=== PATIENT | male | born 1975 | race Caucasian/White ===

== ENCOUNTER 2020-04-21 17:54 | Emergency (ER) | payer SELFPAY ==
[2020-04-21 18:12] VITALS: BP 125/97; PULSE 102; RESP 20; TEMP 37.3; O2SAT 97
[2020-04-21 18:20] VITALS: BP 134/86; PULSE 79
[2020-04-21 18:22] VITALS: BP 137/90; PULSE 86
[2020-04-21 18:24] VITALS: BP 143/101; PULSE 90
--- NOTE | 2020-04-21 18:43 | ED.GENADULT ---
HPI - General Adult General Chief complaint: Neuro Symptoms/Deficit Stated complaint: fatigue/dizzy/fever Time Seen by Provider: 04/21/20 18:43 Source: patient and RN notes reviewed Mode of arrival: ambulatory Limitations: no limitations History of Present Illness HPI narrative: 45-year-old male presents with complaints of fatigue and intermittent dizziness that has been going on for the past 3 days. Symptoms increased this am causing him to call off. No treatment. Exacerbating factors consist of changing position too fast turning head from side to side too fast. Relieving factors is sitting still. Denies symptoms at this time. Denies ear pain, ear itching, ear trauma, trauma to head, syncopal episodes, altered vision, altered speech, confusion, or seizure activity. Denies headache, numbness or tingling in extremities. Denies chest pain or dyspnea. Denies URI symptoms, fever, or chills. Tolerating p.o. intake well. Remains active. The patient reports he have not been diagnosed with COVID-19. The patient reports he is not waiting for the results of a COVID-19 lab test. The patient reports he do not have fever, chills, or weakness. The patient reports he do not have a new or worsening cough or shortness of breath. Denies chest pain. The patient reports he do not have any rhinorrhea, congestion, sore throat, nausea, vomiting, abdominal pain, and diarrhea. Tolerating po intake well. Denies recent traveling. Denies concerns for COVID-19 or exposures been home with limited outdoor exposure except for essential household needs, work, and return home. At this time, patient is not suspected of having COVID-19. Some parts of this dictation were generated by voice recognition software and may contain typographical and/or grammatical inaccuracies. Related Data Home Medications Medication Instructions Recorded Confirmed mirtazapine 1 mg PO DAILY 04/21/20 04/21/20 Allergies Allergy/AdvReac Type Severity Reaction Status Date / Time sulfamethoxazole Allergy Intermediate hives Verified 04/21/20 18:36 trimethoprim Allergy Intermediate hives Verified 04/21/20 18:36 Review of Systems Review of Systems: Narrative: CONSTITUTIONAL: Denies fever, chills, sweats. Complains of fatigue. EYES: Denies visual changes, redness, discharge. ENT: Denies rhinorrhea, congestion, sore throat, otalgia. CARDIOVASCULAR: Denies chest pain, palpitations, edema. RESPIRATORY: Denies dyspnea, wheezing, cough. GASTROINTESTINAL: Denies abdominal pain, nausea, vomiting, diarrhea. GENITOURINARY: Denies dysuria, hematuria, abnormal discharge. SKIN: Denies lesions, itching, drainage. MUSCULOSKELETAL: Denies acute back pain, joint pain, or myalgia. NEUROLOGIC: Denies numbness or focal weakness. Complains of intermittent dizziness. PSYCHIATRIC: Denies anxiety or depression. All systems reviewed & are unremarkable except as noted in HPI and below. FOR[facility]LY [facility], LAT[facility] Past Medical History Medical History Collapse of left lung Hypertension Smoker Surgical History Surgical History (Updated 04/21/20 @ 18:53 by WADE Encinas) History of chest tube placement History of removal of cyst History of tonsillectomy Left tonsil only Family History Family History (Updated 04/21/20 @ 18:54 by WADE Encinas) Father Alive and well Mother Skin cancer (melanoma) Social History Social History (Updated 04/21/20 @ 18:55 by WADE Encinas) Smoking status: Current every day smoker Tobacco type: cigars Second hand tobacco smoke exposure: No Additional smoking assessment comments: Smokes 6 to 8 cigars daily Alcohol intake: former Alcohol use details: Stop drinking 2 years ago Substance use: never Living arrangements: with family Occupation/Education: occupation Gender identity (if verbalized by the patient): Male Sexual Orientation (if Verbalized by the Patient): Straight or Heterosexual Comments At time of signature,
--- NOTE | 2020-04-21 18:51 | ECG_ITS ---
Measurements Intervals [place] Rate: 84 P: 64 [place]: 156 QRS: 34 QRSD: 91 T: 36 QT: 353 QTc: 419 Interpretive Statements SINUS RHYTHM NORMAL ECG Electronically Signed On 04-22-2020 11:34:53 CDT by Ralph Stephenson D.O.
== END 2020-04-21 19:10 | disposition home or self-care (01) ==
PROVIDERS: Emergency Provider Nurse Practitioner Family; PCP Internal Medicine
DX: R42 Dizziness and giddiness (principal); F17.290 Nicotine dependence, other tobacco product, uncomplicated; I10 Essential (primary) hypertension
CPT/HCPCS: 93005; 99213; G0463

== ENCOUNTER 2023-04-14 10:14 | Emergency (ER) | payer OTHER, SELFPAY ==
[2023-04-14 10:26] VITALS: BP 142/74; PULSE 75; RESP 14; TEMP 36.6; O2SAT 99
--- NOTE | 2023-04-14 10:52 | ED.DENTAL ---
HPI - Dental/Oral General Chief complaint: Dental/Oral Stated complaint: Mouth Sore Time Seen by Provider: 04/14/23 10:52 Source: patient, RN notes reviewed and old records reviewed Mode of arrival: ambulatory Limitations: no limitations History of Present Illness HPI Narrative: 47 year old male who presents to [facility] care with complaints of mouth ulcers on and off for the past couple of months which he has had in the past. Patient states that he has had them in past related to stress usually clear up with use of magic mouthwash and steroids. Patient reports that he does not drink alcohol or smoke, has been tested for immune disorder in past because of these which was negative and had tonsil tissue removed which was normal. Patient reports not being able to eat because of discomfort of these mouth sores.Patient has ulcer type of lesions to inside of mouth on sides of tongue and some on sides of mouth reports burning type of pain. Onset (ago): month(s) (on and off for past 2 months) Severity scale (1-10): 8 Exacerbating factors: other (eating) Treatment prior to arrival: other (states he took a percocet) Related Data Home Medications Medication Instructions Recorded Confirmed atorvastatin 20 mg tablet mg 04/14/23 buprenorphine 2 mg-naloxone 0.5 mg film 04/14/23 sublingual film (Suboxone) carvedilol 3.125 mg tablet mg 04/14/23 losartan 100 mg tablet mg 04/14/23 Allergies Allergy/AdvReac Type Severity Reaction Status Date / Time sulfamethoxazole Allergy Intermediate hives Verified 04/14/23 10:32 trimethoprim Allergy Intermediate hives Verified 04/14/23 10:32 Review of Systems Review of Systems: CONSTITUTIONAL: Denies fever, chills, or sweats. ENT: Denies rhinorrhea, congestion, sore throat, or otalgia. Reports ulcers to the inside of his anterior mouth along sides of tongue and on sides of mouth for 2 month duration intermittently CARDIOVASCULAR: Denies chest pain, palpitations, or edema. RESPIRATORY: Denies cough or dyspnea. SKIN: Denies rash or itching. MUSCULOSKELETAL: Denies myalgia. NEUROLOGIC: Denies headache All systems reviewed & are unremarkable except as noted in HPI and below PMFSH Past Medical History Medical History Collapse of left lung Ejection fraction < 50% Elevated serum cholesterol Hypertension Smoker Surgical History Surgical History History of chest tube placement History of removal of cyst History of tonsillectomy Left tonsil only Family History Family History Father Alive and well Mother Skin cancer (melanoma) Social History Social History Smoking status: Former smoker Second hand tobacco smoke exposure: No Alcohol intake: former Alcohol use details: Stop drinking 2 years ago Substance use: former Substance use type: opiates Other substance usage details: on suboxone Living arrangements: with family Occupation/Education: occupation Gender identity (if verbalized by the patient): Male Sexual Orientation (if Verbalized by the Patient): Straight or Heterosexual Comments At time of signature, agree with nursing past medical, surgical, social and family history. There is no relevant family history pertinent to the presenting complaint Exam Narrative: GENERAL: Well-appearing, well-nourished, and in no acute distress. HEAD: Normocephalic, atraumatic. EYES: PERRLA and EOMI. ENT: Nares clear, no rhinorrhea or epistaxis. Mucous membranes moist. Aphthous type of ulcer lesions on inside of mouth and on sides of tongue which he reports make eating difficult,intermittently past 2 months NECK: Supple.no lymphadenopathy CHEST: Clear to auscultation. No respiratory distress..SAO2 99% on room air HEART: Regular rate and rhythm. No murmur heard. Normal peripheral pulses.no peripheral edema noted
== END 2023-04-14 11:18 | disposition home or self-care (01) ==
PROVIDERS: Emergency Provider Registered Nurse; PCP Physician Assistant
DX: K12.0 Recurrent oral aphthae (principal); Z87.891 Personal history of nicotine dependence; I10 Essential (primary) hypertension
CPT/HCPCS: 99213; G0463

== ENCOUNTER 2024-04-21 16:27 | Emergency (ER) | payer OTHER, SELFPAY ==
[2024-04-21 16:38] VITALS: BP 140/93; PULSE 81; RESP 20; TEMP 36.5; O2SAT 99
--- NOTE | 2024-04-21 17:02 | ED.GENADULT ---
HPI - General Adult General Chief complaint: Dental/Oral Stated complaint: Mouth Sore Time Seen by Provider: 04/21/24 17:02 Source: patient, RN notes reviewed and old records reviewed Mode of arrival: ambulatory Limitations: no limitations History of Present Illness HPI narrative: 49-year-old male to Express Care complaint multiple aphthous ulcers to oral mucosa for 3 days. Patient reports chronic history of aphthous ulcers and states that he is usually treated with steroids and Magic mouthwash. Patient reports prior testing for autoimmune diseases as well as biopsies prior lesions which were all negative. Patient states margins make it difficult to eat and drink and states he has maintained relatively soft diet for the past 2 days. Patient denies difficulty swallowing, cough, hoarseness, shortness of breath, fever, recent illness. Patient able to tolerate fluids by mouth. Patient tachycardic in triage. In exam room, respirations even and nonlabored. Patient able to speak in complete sentences with mild distress from pain. Patient able to tolerate fluids by mouth. Patient in no acute distress. Related Data Home Medications Medication Instructions Recorded Confirmed atorvastatin 20 mg tablet mg 04/14/23 buprenorphine 2 mg-naloxone 0.5 mg film 04/14/23 sublingual film (Suboxone) losartan 100 mg tablet mg 04/14/23 tadalafil 5 mg tablet mg 04/21/24 Allergies Allergy/AdvReac Type Severity Reaction Status Date / Time sulfamethoxazole Allergy Intermediate hives Verified 04/14/23 10:32 trimethoprim Allergy Intermediate hives Verified 04/14/23 10:32 Review of Systems Review of Systems: All systems reviewed & are unremarkable except as noted in HPI and below Constitutional: Constitutional: Reports no additional constitutional complaints Eyes: Eyes: Reports no additional eye complaints ENT: Reports as per HPI, Reports mouth lesions and Reports mouth pain Cardiovascular: Cardiovascular: Reports no additional cardiovascular complaints, Denies chest pain and Denies dyspnea Respiratory: Respiratory: Reports no additional respiratory complaints, Denies cough and Denies dyspnea Musculoskeletal: Musculoskeletal: Reports no additional musculoskeletal complaints Neurologic: Reports system reviewed and no additional complaints, except as documented Psychiatric: Psychiatric: Reports no additional psychiatric complaints FOR[facility]LY [facility], [facility] Past Medical History Medical History Collapse of left lung Ejection fraction < 50% Elevated serum cholesterol Hypertension Smoker Surgical History Surgical History History of chest tube placement History of removal of cyst History of tonsillectomy Left tonsil only Family History Family History Father Alive and well Mother Skin cancer (melanoma) Social History Social History Smoking status: Former smoker Second hand tobacco smoke exposure: No Alcohol intake: former Alcohol use details: Stop drinking 2 years ago Substance use: former Substance use type: opiates Other substance usage details: on suboxone Living arrangements: with family Occupation/Education: occupation Gender identity (if verbalized by the patient): Male Sexual Orientation (if Verbalized by the Patient): Straight or Heterosexual Comments At the time of my signature, I reviewed and agree with the nursing past medical, surgical, social, and family history. There is no relevant family history pertinent to the patient complaint. Exam Const: General: cooperative, healthy appearing, no acute distress, alert, in distress mild ( From pain), uncomfortable and well nourished Nutritional Appearance: well nourished Orientation/consciousness: patient oriented x3 Limitations: no limitations HENMT: Head: normal to in
== END 2024-04-21 17:25 | disposition home or self-care (01) ==
PROVIDERS: Emergency Provider Nurse Practitioner Family; PCP Physician Assistant
DX: K12.0 Recurrent oral aphthae (principal); Z87.891 Personal history of nicotine dependence; E78.00 Pure hypercholesterolemia, unspecified; I10 Essential (primary) hypertension
CPT/HCPCS: 99213; G0463

== ENCOUNTER 2024-05-19 15:31 | Emergency (ER) | payer OTHER, SELFPAY ==
[2024-05-19 15:38] VITALS: BP 147/92; PULSE 68; RESP 20; TEMP 36.7; O2SAT 99
--- NOTE | 2024-05-19 16:27 | ED.DENTAL ---
HPI - Dental/Oral General Chief complaint: Dental/Oral Stated complaint: Mouth Sore Source: patient Mode of arrival: ambulatory History of Present Illness HPI Narrative: 49-year-old male with a history of recurrent aphthous ulcers presented for complaint of more sores in the mouth over past few days. He was last treated on 04/21 for the same. He endorses he has had these for 20 years, they improve for a few weeks after taking a course of steroids and using magic mouthwash. He states he has seen multiple specialists for these, and was told he has an autoimmune disease. Patient denies difficulty swallowing, cough, hoarseness, shortness of breath, fever, recent illness. Patient able to tolerate fluids by mouth. MD Complaint: tooth pain Related Data Home Medications Medication Instructions Recorded Confirmed niacin 100 mg tablet 100 mg PO DAILY 05/19/24 05/19/24 saw palmetto 160 mg capsule 160 mg PO DAILY 05/19/24 05/19/24 vitamin B complex 1 tablet PO DAILY 05/19/24 05/19/24 Allergies Allergy/AdvReac Type Severity Reaction Status Date / Time sulfamethoxazole Allergy Intermediate hives Verified 05/19/24 15:57 trimethoprim Allergy Intermediate hives Verified 05/19/24 15:57 Review of Systems Review of Systems: CONSTITUTIONAL: Denies body aches, fever, chills ENT: Denies rhinorrhea, congestion, sore throat, or otalgia. Reports mouth pain CARDIOVASCULAR: Denies chest pain, palpitations RESPIRATORY: Denies cough or dyspnea. SKIN: Denies rash, itching, or wounds. MUSCULOSKELETAL: Denies myalgia. NEUROLOGIC: Denies headache, numbness, tingling, or weakness. PMFSH Past Medical History Medical History Collapse of left lung Ejection fraction < 50% Elevated serum cholesterol Hypertension Smoker Surgical History Surgical History History of chest tube placement History of removal of cyst History of tonsillectomy Left tonsil only Family History Family History Father Alive and well Mother Skin cancer (melanoma) Social History Social History Smoking status: Former smoker Second hand tobacco smoke exposure: No Alcohol intake: former Alcohol use details: Stop drinking 2 years ago Substance use: former Substance use type: opiates Other substance usage details: on suboxone Living arrangements: with family Occupation/Education: occupation Gender identity (if verbalized by the patient): Male Sexual Orientation (if Verbalized by the Patient): Straight or Heterosexual Comments At time of signature, I have reviewed and agree with nursing past medical, surgical, social and family history unless otherwise noted. Please see nursing chart for further information. There is no relevant family history pertinent to the presenting complaint Exam Narrative: GENERAL: Appears in pain; no acute distress. HEAD: Normocephalic, atraumatic. EYES: EOMI. No redness or drainage. Conjunctivae normal. ENT: Right upper lip and right lateral tongue with white mucosal ulcerations, tender. Mucous membranes pink and moist. TMs normal bilaterally. Throat normal. Uvula midline. NECK: Normal AROM. No lymphadenopathy. CHEST: No respiratory distress. Clear to auscultation. HEART: Regular rate and rhythm. No murmur appreciated. SKIN: Warm, dry, no rash. Normal skin turgor. NEURO: No focal deficits. Alert and oriented x3. Gait steady. Course Course Emergency Course: Patient is aware of diagnosis, understands and agrees to treatment plan. Anticipatory guidance given. Patient agrees to follow-up as directed and is aware of reasons to seek care at the emergency department. Portions of this record may have been created with voice recognition software Level of Care: Express Care Visit Vital Signs Vital signs: Vital Signs Temperature
== END 2024-05-19 16:45 | disposition home or self-care (01) ==
PROVIDERS: Emergency Provider Nurse Practitioner Family; PCP Physician Assistant
DX: K12.0 Recurrent oral aphthae (principal); Z87.891 Personal history of nicotine dependence; I10 Essential (primary) hypertension
CPT/HCPCS: 99213; G0463

== ENCOUNTER 2024-07-06 10:19 | Emergency (ER) | payer OTHER, SELFPAY ==
[2024-07-06 10:24] VITALS: BP 132/85; PULSE 83; RESP 17; TEMP 36.4; O2SAT 99
--- NOTE | 2024-07-06 10:41 | ED.GENADULT ---
HPI - General Adult General Chief complaint: Unspecified Stated complaint: mouth ulcers Time Seen by Provider: 07/06/24 10:41 Source: patient, RN notes reviewed and old records reviewed Mode of arrival: ambulatory Limitations: no limitations History of Present Illness HPI narrative: 49-year-old male to Express Care complaint multiple aphthous ulcers to oral mucosa. Patient reports chronic history of aphthous ulcers and states that he is usually treated with steroids and Magic mouthwash. Patient states he has magic mouthwash at home and has had little to no relief with utilization. Patient reports prior testing for autoimmune diseases as well as biopsies prior lesions which were all negative. Patient states margins make it difficult to eat and drink and states he has maintained relatively soft diet For the past several days. Patient denies difficulty swallowing, cough, hoarseness, shortness of breath, fever, recent illness. Patient able to tolerate fluids by mouth. In exam room, respirations even and nonlabored. Patient able to speak in complete sentences with mild distress from pain. Patient able to tolerate fluids by mouth. Patient in no acute distress. Related Data Home Medications Medication Instructions Recorded Confirmed niacin 100 mg tablet 100 mg PO DAILY 05/19/24 07/06/24 saw palmetto 160 mg capsule 160 mg PO DAILY 05/19/24 07/06/24 vitamin B complex 1 tablet PO DAILY 05/19/24 07/06/24 tadalafil 5 mg tablet 5 mg PO DAILY 07/06/24 07/06/24 Allergies Allergy/AdvReac Type Severity Reaction Status Date / Time sulfamethoxazole Allergy Intermediate hives Verified 07/06/24 10:36 trimethoprim Allergy Intermediate hives Verified 07/06/24 10:36 Review of Systems Review of Systems: All systems reviewed & are unremarkable except as noted in HPI and below Constitutional: Constitutional: Reports no additional constitutional complaints Eyes: Eyes: Reports no additional eye complaints ENT: Reports as per HPI, Reports mouth pain and Reports other ( Oral lesions) Cardiovascular: Cardiovascular: Reports no additional cardiovascular complaints, Denies chest pain and Denies dyspnea Respiratory: Respiratory: Reports no additional respiratory complaints, Denies cough and Denies dyspnea Musculoskeletal: Musculoskeletal: Reports no additional musculoskeletal complaints Neurologic: Reports system reviewed and no additional complaints, except as documented Psychiatric: Psychiatric: Reports no additional psychiatric complaints PMFSH Past Medical History Medical History Collapse of left lung Ejection fraction < 50% Elevated serum cholesterol Hypertension Smoker Surgical History Surgical History History of chest tube placement History of removal of cyst History of tonsillectomy Left tonsil only Family History Family History Father Alive and well Mother Skin cancer (melanoma) Social History Social History Smoking status: Former smoker Second hand tobacco smoke exposure: No Alcohol intake: former Alcohol use details: Stop drinking 2 years ago Substance use: former Substance use type: opiates Other substance usage details: on suboxone Living arrangements: with family Occupation/Education: occupation Gender identity (if verbalized by the patient): Male Sexual Orientation (if Verbalized by the Patient): Straight or Heterosexual Comments At the time of my signature, I reviewed and agree with the nursing past medical, surgical, social, and family history. There is no relevant family history pertinent to the patient complaint. Exam Const: General: cooperative, healthy appearing, no acute distress, alert, uncomfortable and well nourished Nutritional Appearance: well nourished Orientation/consciousness: patient oriented x3 Limitations: no limitations HENMT: Head: normal to inspection Ears: external ears normal Face/Nose/Sinus: Normal external nose present, Normal nares present, normal facial exam, No erythema and No edema Face and sinus: normal facial exam, no erythema and no edema Mouth: Yes moist mucous membranes abnormal and Yes Abnormal oral and palatal mucosa present erythematous and ulceration of the left buccal mucosa Eyes: General: appearance normal, both eyes and all related structures Neck: Neck: normal visual inspection, full ROM and no meningeal signs Chest: Chest palpation & inspection: normal inspection of the chest Resp: Effort & Inspection: normal respiratory effort and able to speak in complete sentences Auscultation: clear to auscultation bilaterally Cardio: Jugular venous distension: no JVD Rate: regular rate Rhythm: regular rhythm Back/Spine/Pelvis: Cervical Spine: cervical ROM normal Skin: General skin exam: normal color, no rashes or lesions noted and turgor normal Neuro: General: patient oriented x3, gait normal, moves all extremities and no meningeal signs Speech: normal speech Gait exam (Neuro): Normal gait present Extrem: General: normal to inspection, full ROM and capillary refill normal Psych: Appearance: grossly normal and well kempt Course Course Emergency Course: Some parts of this dictation were generated by voice recognition software and may contain typographical and/or grammatical inaccuracies. Level of Care: Express Care Visit Vital Signs Vital signs: Vital Signs Temperature 36.4 C L 07/06/24 10:24 Pulse Rate 83 07/06/24 10:24 Respiratory Rate 17 07/06/24 10:24 Blood Pressure 132/85 07/06/24 10:24 Pulse Oximetry 99 07/06/24 10:24 Oxygen Delivery Room Air 07/06/24 10:24 Temperature 36.4 C L 07/06/24 10:24 Pulse Rate 83 07/06/24 10:24 Respiratory Rate 17 07/06/24 10:24 Blood Pressure 132/85 07/06/24 10:24 Pulse Oximetry 99 07/06/24 10:24 Oxygen Delivery Room Air 07/06/24 10:24 reviewed Medical Decision Making MDM Narrative Medical decision making narrative: 49-year-old male to Express Care complaint multiple aphthous ulcers to oral mucosa. Patient reports chronic history of aphthous ulcers and states that he is usually treated with steroids and Magic mouthwash. Patient states he has magic mouthwash at home and has had little to no relief with utilization. Patient reports prior testing for autoimmune diseases as well as biopsies prior lesions which were all negative. Patient states margins make it difficult to eat and drink and states he has maintained relatively soft diet For the past several days. Patient denies difficulty swallowing, cough, hoarseness, shortness of breath, fever, recent illness. Patient able to tolerate fluids by mouth. In exam room, respirations even and nonlabored. Patient able to speak in complete sentences with mild distress from pain. Patient able to tolerate fluids by mouth. Patient in no acute distress. Patient is sitting uncomfortably in exam room nontoxic in appearance. on exam, ulcerations noted to left pupil mucosa with surrounding erythema. Consistent with aphthous ulcers. Patient appropriate for outpatient treatment and follow-up. Discharge instructions reviewed with patient, as well as provided in writing per nursing staff. The instructions also include specific and strict return/GO TO THE ER as well as f/u information. All questions have been answered, and the patient deny any further questions with discharge and discharge plan. Some parts of this dictation were generated by voice recognition software and may contain typographical and/or grammatical inaccuracies. Differential Diagnosis Differential Diagnosis: aphthous ulcer, herpes simplex, [id number] Vital Signs Vital Signs: Vital Signs Temperature 36.4 C L 07/06/24 10:24 Pulse Rate 83 07/06/24 10:24 Respiratory Rate 17 07/06/24 10:24 Blood Pressure 132/85 07/06/24 10:24 Pulse Oximetry 99 07/06/24 10:24 Oxygen Delivery Room Air 07/06/24 10:24 Temperature 36.4 C L 07/06/24 10:24 Pulse Rate 83 07/06/24 10:24 Respiratory Rate 17 07/06/24 10:24 Blood Pressure 132/85 07/06/24 10:24 Pulse Oximetry 99 07/06/24 10:24 Oxygen Delivery Room Air 07/06/24 10:24 Discharge Plan Discharge Clinical Impression: Aphthous ulcer of mouth Patient Disposition: Home, Self-Care Condition: Stable Prescriptions: New prednisone 50 mg tablet 50 mg PO DAILY Qty: 5 0RF No Action vitamin B complex [B Complex-Vitamin B12] Tablet 1 tablet PO DAILY niacin 100 mg Tablet 100 mg PO DAILY jhoana palmetto 160 mg Capsule 160 mg PO DAILY tadalafil 5 mg tablet 5 mg PO DAILY Follow-up/Referrals: Janelle,PEDRO PABLO Lindquist [Primary Care Provider] -
== END 2024-07-06 11:00 | disposition home or self-care (01) ==
PROVIDERS: Emergency Provider Nurse Practitioner Family; PCP Physician Assistant
DX: K12.0 Recurrent oral aphthae (principal); Z87.891 Personal history of nicotine dependence; I10 Essential (primary) hypertension
CPT/HCPCS: 99213; G0463

== ENCOUNTER 2024-08-10 12:59 | Emergency (ER) | payer OTHER, SELFPAY ==
[2024-08-10 13:09] VITALS: BP 151/91; PULSE 78; RESP 16; TEMP 36.3; O2SAT 100
--- NOTE | 2024-08-10 13:28 | ED.GENADULT ---
HPI - General Adult General Chief complaint: Dental/Oral Stated complaint: mouth ulcers Source: patient Mode of arrival: ambulatory Limitations: no limitations History of Present Illness HPI narrative: Pt presents for evaluation of a painful ulcer to the inner aspect of the left cheek. He has had persistent symptoms for several decades after he started taking Chantix for smoking cessation. He has had lesions in several places in his mouth with persistent symptoms to the inner aspect of the left cheek, which never seems to heal. He states he has seen Hematology/Oncology, ENT, and an oral surgeon. He has had biopsies and several tests including an HIV test. He has also tried several therapies including antibiotics, triamcinolone dental paste, nystatin suspension. He no longer smokes. He is not aware of any type of immunodeficiency. He states his primary care provider has told that he has a markedly elevated white blood cell count. States that the only therapy that has provided him with any relief is prednisone. Related Data Home Medications Medication Instructions Recorded Confirmed niacin 100 mg tablet 100 mg PO DAILY 05/19/24 07/06/24 saw palmetto 160 mg capsule 160 mg PO DAILY 05/19/24 07/06/24 vitamin B complex 1 tablet PO DAILY 05/19/24 07/06/24 tadalafil 5 mg tablet 5 mg PO DAILY 07/06/24 07/06/24 Allergies Allergy/AdvReac Type Severity Reaction Status Date / Time sulfamethoxazole Allergy Intermediate hives Verified 07/06/24 10:36 trimethoprim Allergy Intermediate hives Verified 07/06/24 10:36 Review of Systems Review of Systems: CONSTITUTIONAL: Denies fever, chills, or sweats. EYES: Denies visual changes, redness, or discharge. ENT: Reports painful ulcer to the inner aspect of the left cheek. Denies rhinorrhea, congestion, sore throat, or otalgia. CARDIOVASCULAR: Denies chest pain, palpitations, or edema. RESPIRATORY: Denies cough or dyspnea. GASTROINTESTINAL: Denies abdominal pain, nausea, vomiting, or diarrhea. GENITOURINARY: Denies dysuria or hematuria. SKIN: Denies rash or itching. MUSCULOSKELETAL: Denies back pain, joint pain, or myalgia. NEUROLOGIC: Denies headache, numbness, dizziness, or weakness. PSYCHIATRIC: Denies anxiety or depression. [facility] Past Medical History Medical History Collapse of left lung Ejection fraction < 50% Elevated serum cholesterol Hypertension Smoker Surgical History Surgical History History of chest tube placement History of removal of cyst History of tonsillectomy Left tonsil only Family History Family History Father Alive and well Mother Skin cancer (melanoma) Social History Social History Smoking status: Former smoker Second hand tobacco smoke exposure: No Alcohol intake: former Alcohol use details: Stop drinking 2 years ago Substance use: former Substance use type: opiates Other substance usage details: on suboxone Living arrangements: with family Occupation/Education: occupation Gender identity (if verbalized by the patient): Male Sexual Orientation (if Verbalized by the Patient): Straight or Heterosexual Exam Narrative: GENERAL: Well-appearing, well-nourished, and in no acute distress. HEAD: Normocephalic, atraumatic. EYES: PERRLA and EOMI. ENT: Nares clear, no rhinorrhea or epistaxis. Mucous membranes moist. Oropharynx without tonsillar hypertrophy exudate or other lesions. Bilateral TMs pearly fay nonbulging NECK: Supple. No adenopathy or masses. No carotid bruits or JVD CHEST: Clear to auscultation. No respiratory distress. No wheezes rales or rhonchi HEART: Regular rate and rhythm. No murmur heard. Normal peripheral pulses. ABDOMEN: Soft, nontender, nondistended, normal active bowel sounds. EXTREMITIES: Normal range of motion. No edema. SKIN: There is a 1 cm ulcerative lesion to the inner aspect of the left cheek. Warm, dry, no rash. NEURO: No focal deficits. Alert and oriented x3. PSYCH: Normal mood and affect. Course Course Emergency Course: This is a 49-year-old male that presents today requesting treatment for chronic left inner cheek ulcer which has previously responded well to prednisone. I obtained at herpes viral swab. I recommended he also look into labs to test him for syphilis an autoimmune disease. He indicates that there is still concern that he may have some type of autoimmune disease. He will follow-up with his primary provider. In the event that he has difficulty breathing or swelling he will go to the emergency department. Patient in agreement with plan of care. Level of Care: Express Care Visit Vital Signs Vital signs: Vital Signs Temperature 36.3 C L 08/10/24 13:09 Respiratory Rate 16 08/10/24 13:09 Blood Pressure 151/91 H 08/10/24 13:09 Pulse Oximetry 100 08/10/24 13:09 Oxygen Delivery Room Air 08/10/24 13:09 Temperature 36.4 C L 08/10/24 13:18 Pulse Rate 96 08/10/24 13:18 Respiratory Rate 20 08/10/24 13:18 Blood Pressure 124/84 08/10/24 13:18 Pulse Oximetry 99 08/10/24 13:18 Oxygen Delivery Room Air 08/10/24 13:18 Medical Decision Making Vital Signs Vital Signs: Vital Signs Temperature 36.3 C L 08/10/24 13:09 Respiratory Rate 16 08/10/24 13:09 Blood Pressure 151/91 H 08/10/24 13:09 Pulse Oximetry 100 08/10/24 13:09 Oxygen Delivery Room Air 08/10/24 13:09 Temperature 36.4 C L 08/10/24 13:18 Pulse Rate 96 08/10/24 13:18 Respiratory Rate 20 08/10/24 13:18 Blood Pressure 124/84 08/10/24 13:18 Pulse Oximetry 99 08/10/24 13:18 Oxygen Delivery Room Air 08/10/24 13:18 Discharge Plan Discharge Clinical Impression: Mouth ulcer Patient Disposition: Home, Self-Care Condition: Stable Instructions: Antibiotic Form, Gingivostomatitis (ED) Patient Language: Gabonese Prescriptions: New prednisone 50 mg tablet 50 mg PO DAILY Qty: 5 0RF No Action vitamin B complex [B Complex-Vitamin B12] Tablet 1 tablet PO DAILY niacin 100 mg Tablet 100 mg PO DAILY saw palmetto 160 mg Capsule 160 mg PO DAILY tadalafil 5 mg tablet 5 mg PO DAILY Follow-up/Referrals: Janelle,PEDRO PABLO Lindquist [Primary Care Provider] - Time of Disposition: 13:26
== END 2024-08-10 13:32 | disposition home or self-care (01) ==
PROVIDERS: Emergency Provider Nurse Practitioner; PCP Physician Assistant
DX: K12.1 Other forms of stomatitis (principal); I10 Essential (primary) hypertension; Z87.891 Personal history of nicotine dependence
CPT/HCPCS: 87255; 99213; G0463

== ENCOUNTER 2024-08-20 16:03 | Emergency (ER) | payer OTHER, SELFPAY ==
[2024-08-20 16:17] VITALS: BP 135/95; PULSE 89; RESP 18; TEMP 36.7; O2SAT 98
--- NOTE | 2024-08-20 16:31 | ED.URI ---
HPI - URI/Sore Throat General Chief Complaint: Upper Respiratory Infection Stated Complaint: Sore Throat Time Seen by Provider: 08/20/24 16:31 Source: patient, RN notes reviewed and old records reviewed Mode of arrival: ambulatory Limitations: no limitations History of Present Illness HPI Narrative: 49 year old male who [facility] with complaints of one week duration of head congestion and drainage, headaches, fevers up to 101F, throat hurts and exacerbation of his chronic mouth sores. Patient reprts that he has been taking Benadryl ad also took Tylenol for his fever. Patient reports that he has had biopsies of mouth sores and they have never really figured it out think possibly immune disorder. Patient reports that prednisone is the only thing that clears them up, has tried magic mouthwash and lidocaine and never helped. MD elicited complaint: sore throat, rhinorrhea, nasal congestion, sinus pain and other (headache and mouth sores) Onset (ago): week(s) (1) Pain scale (0-10): 4 Able to tolerate fluids by mouth: Yes Treatments prior to arrival: acetaminophen and other (Benadryl) Related Data Home Medications Medication Instructions Recorded Confirmed niacin 100 mg tablet 100 mg PO DAILY 05/19/24 08/20/24 saw palmetto 160 mg capsule 160 mg PO DAILY 05/19/24 08/20/24 vitamin B complex 1 tablet PO DAILY 05/19/24 08/20/24 tadalafil 5 mg tablet 5 mg PO DAILY 07/06/24 08/20/24 Allergies Allergy/AdvReac Type Severity Reaction Status Date / Time sulfamethoxazole Allergy Intermediate hives Verified 08/20/24 16:27 trimethoprim Allergy Intermediate hives Verified 08/20/24 16:27 Review of Systems Review of Systems: CONSTITUTIONAL: reports malaise, chills, sweats, or fever. EYES: Denies visual changes, redness, or discharge. ENT: Reports rhinorrhea, congestion, sinus pain, no otalgia and positive sore throat. CARDIOVASCULAR: Denies chest pain, palpitations, or edema. RESPIRATORY: Reports no acute cough.? Denies dyspnea. GASTROINTESTINAL: Denies abdominal pain, nausea, vomiting, diarrhea SKIN: Denies rash or itching. MUSCULOSKELETAL: Denies myalgia. NEUROLOGIC: reports headache. All systems reviewed & are unremarkable except as noted in HPI and below PMFSH Past Medical History Medical History (Updated 08/22/24 @ 18:39 by Umu Torres NP) Collapse of left lung Ejection fraction < 50% Elevated serum cholesterol Hypertension Surgical History Surgical History History of chest tube placement History of removal of cyst History of tonsillectomy Left tonsil only Family History Family History Father Alive and well Mother Skin cancer (melanoma) Social History Social History (Updated 08/22/24 @ 18:34 by Umu Torres NP) Smoking status: Former smoker Tobacco type: cigarettes Second hand tobacco smoke exposure: No Additional smoking assessment comments: quit 3 years ago Alcohol intake: former Alcohol use details: Stop drinking 2 years ago Substance use: former Substance use type: opiates Other substance usage details: on suboxone reports not on this any longer 08/17 Living arrangements: with family Occupation/Education: occupation Gender identity (if verbalized by the patient): Male Sexual Orientation (if Verbalized by the Patient): Straight or Heterosexual Comments At time of signature, agree with nursing past medical, surgical, social and family history. There is no relevant family history pertinent to the presenting complaint Exam Narrative: GENERAL: Well-appearing, well-nourished, and in no acute distress. HEAD: Normocephalic EYES: PERRLA, conjunctivae clear ENT: Nares clear, turbinates edematous and erythematous, clear discharge. Mucous membranes moist. TM pearly fay with dull light reflex bilaterally; no tragal tenderness. Oropharynx erythematous without lesions. Tonsil not enlarged and without exudate, no drooling, no hoarseness, no trismus, uvula midline.some red raised mouth lesion, post nasal drainage NECK: Supple. No lymphadenopathy CHEST: Clear to auscultation, breath sounds equal. No wheezing, rhonchi, rales, or stridor. No respiratory distress, speaks in full sentences.no cough noted,SAO2 98% on room air HEART: Regular rate and rhythm. No murmur heard. SKIN: Warm, dry, no rash. NEURO: Alert and oriented x3. PSYCH: Normal mood and affect Course Course Emergency Course: Patient is aware of diagnosis, understands and agrees to treatment plan.? Anticipatory guidance given.? Patient agrees to follow-up as directed and is aware of reasons to seek care at the emergency department. Portions of this record may have been created with voice recognition software Level of Care: Express Care Visit Vital Signs Vital signs: Vital Signs Temperature 36.7 C 08/20/24 16:17 Pulse Rate 89 08/20/24 16:17 Respiratory Rate 18 08/20/24 16:17 Blood Pressure 135/95 H 08/20/24 16:17 Pulse Oximetry 98 08/20/24 16:17 Oxygen Delivery Room Air 08/20/24 16:17 Temperature 36.7 C 08/20/24 16:17 Pulse Rate 89 08/20/24 16:17 Respiratory Rate 18 08/20/24 16:17 Blood Pressure 135/95 H 08/20/24 16:17 Pulse Oximetry 98 08/20/24 16:17 Oxygen Delivery Room Air 08/20/24 16:17 Reviewed MDM - URI/Sore Throat MDM Narrative Medical decision making narrative: Differential diagnosis considered: Pedersen virus, strep pharyngitis, allergic rhinitis, upper respiratory tract infection, sinusitis, rhinosinusitis, nasopharyngitis. viral pharyngitis, otitis media, otitis externa, pneumonia, bronchitis, viral cough syndrome, viral syndrome, and influenza.? Exam findings show no acute concerns or changes; patient is non-toxic appearing and is in no distress.? Patient is appropriate for outpatient treatment and follow-up. Differential Diagnosis Differential diagnosis: Likely upper respiratory infection, sinusitis, pharyngitis and other (aphthous ulcers) Medical Records Attestation: I reviewed the patient's medical records. Lab Data Attestation: I reviewed the patient's lab results. Lab results narrative: strep screen negative, culture sent, refused any other testing Labs: Lab Results 08/20/24 Range/Units 16:25 POC Grp A Strep Screen Negative (Negative) Critical Care Time Critical Care Time Critical Care Time: No Discharge Plan Discharge Clinical Impression: Upper respiratory infection, Aphthous pharyngitis Patient Disposition: Home, Self-Care Condition: Stable Instructions: Antibiotic Form, Gingivostomatitis (ED) Additional Instructions: Increase fluids especially juices and water [id number] cough and cold medicine of your choice for your symptoms Zyrtec Claritin or My daily Magic mouthwash p.r.n. as previously prescribed Steroids as directed--take with food heat to the face 20-30 minutes 4-6 times a day for pain Salt water gargles, throat lozenges or throat sprays as desired Antibiotic as directed- If your symptoms persist, change or worsen significantly before you can contact your personal physician then please, without delay, go to the emergency department for further evaluation. Follow-up with PCP in 7-10 days or sooner if needed Follow up with PCP soon in regards to your blood pressure which is elevated above threshold for referral. Blood pressure above 120/80 may indicate pre-hypertension.135/95 Prescriptions: New amoxicillin 875 mg tablet 875 mg PO Q12H Qty: 20 0RF prednisone 50 mg tablet 50 mg PO DAILY 5 Days Qty: 5 0RF No Action vitamin B complex [B Complex-Vitamin B12] Tablet 1 tablet PO DAILY niacin 100 mg Tablet 100 mg PO DAILY saw palmetto 160 mg Capsule 160 mg PO DAILY tadalafil 5 mg tablet 5 mg PO DAILY Follow-up/Referrals: Janelle,PEDRO PABLO Lindquist [Primary Care Provider] - Time of Disposition: 17:07 Quality [place] Coma Scale Eyes: Open Verbal: Oriented and Alert Motor: Follows Commands Lav[place] Coma Total Score: 15
[2024-08-20 17:18] LABS: EDSTREPNEGPOS1 Negative (Negative)
== END 2024-08-20 17:10 | disposition home or self-care (01) ==
PROVIDERS: Emergency Provider Registered Nurse; PCP Physician Assistant
DX: J06.9 Acute upper respiratory infection, unspecified (principal); B08.5 Enteroviral vesicular pharyngitis; I10 Essential (primary) hypertension; Z87.891 Personal history of nicotine dependence
CPT/HCPCS: 87081; 87880; 99213; G0463

== ENCOUNTER 2025-02-27 17:23 | Emergency (ER) | payer OTHER, SELFPAY ==
--- OUTSIDE RECORDS SUMMARY | 2025-02-27 17:26 | XMS_ITS | Patient Health Record ---
[facility] Organization [facility] Address [address] [place] [address] Care Team Providers Care Instruments Sales Representative Name Role Phone Giovani Mary Primary Care Provider Allergies Allergen (clinical drug ingredient) Drug/Non Drug Allergy documented on EMR Reaction Allergy Type Onset Date Status gabapentin Gabapentin Encephalopathy Drug Allergy 10/06/2020 Active amlodipine Amlodipine Unknown Drug Allergy Activ e Reason For Referral No Information Medications Medication SIG (Take, Route, Frequency, Duration) Notes Start Date End Date Status Losartan Potassium 50 mg TAKE 1 TABLET B Y MOUTH DAILY for 30 Active Triamcinolone Acetonide 0.1 % APPLY TO AFFECTED AREA(S) A THIN LAYER TO SEBORRHEA AT BEDTIME NEEDED for 5 Active Zubsolv 5.7-1.4 MG 1 tablet under the tongue and allow to dissolve Sublingual twice a day 12/22/2021 Active OLANZapine 5 mg TAKE 1 TABLET BY [facility] AT BEDTIME for 30 Active Tadalafil 5 MG 1 tablet as needed 1 -2 HOURS PRIOR TO SEXUAL ACTIVITY Orally EVERY OTHER DAY 10/20/2021 Active Nicotine 21 MG/24HR APPLY 1 PATCH TO SKI N DAILY for 28 Active Social History Tobacco Use: Social History Observation Description Date Details (start date - stop date) Current Smoker NA - NA Sex Assigned At : Social History Observation Description Sex Assigned At Male Dont use, Tobacco Use/Smoking Question Answer Notes Are you a current every day smoker Problems Problem Type SNOMED Code ICD Code Onset Dates Problem Status W/U Status Risk Notes Problem Tobacco user (157492348) Nicotine dependence, unspecified, uncomplicated (F17.200) Active confirmed Problem 439283395 Bipolar disorder , in partial remission, most recent episode depressed (F31.75) 1 Active confirmed Problem Chronic pain (78291068) Other chronic pain (G89.29) Active confirmed Problem Low back pain (817672271) Low back pain (M54.5) Active confirmed Problem 99794102 Chronic fatigue (R53.82) Active confirmed Problem 17896840 Sleep apnea, unspecified type (G47.30) Active confirmed Problem 23854769 Left sided sciatica (M54.32) Active confirmed Problem Opioid dependence (28939108) Opioid use disorder, severe (F11.20) Active confirmed Problem 44135570 Sexual dysfunction (R37) 1 Active confirmed Problem 228635823 Tobacco use disorder (F17.200) Active confirmed Problem 63656976 Hypertension, unspecified type (I10) Active confirmed Problem Obesity (588917527) Obesity, unspecified classification, unspecified obesity type, unspecified whether serious comorbidity present (E66.9) Active confirmed Problem 2384960 Opioid use disorder (F11.99) Active confirmed Problem 63217592 Cannabis use disorder, moderate, dependence (F12.20) Active confirmed Problem 50564380 Seborrhea (L21.9) Active confirmed Plan Of Treatment Pending Test Test Name Order Date Testosterone,Free and Total 01/20/2021 Vitamin B12 and Folate 01/20/2021 CBC With Differential/Platelet* 01/21/20 21 C-Reactive Protein, Quant 01/20/2021 Hepatic Function Panel (7)* 01/20/2021 Basic Metabolic Panel (8)* 01/20/2021 TSH Rfx on Abnormal to Free T4 1 PSA, Serum (Serial Monitor)* 01/20/2021 Future Test Test Name Order Date MLH1/MSH2/MSH6/PMS2 Comprehensive Analys is 02/01/2021 Fentanyl Confirmation 04/29/2021 Insurance Providers Payer Name Payer Address Payer Phone Subscriber Number Group Number Insured Name Patient Relationship to Insured Coverage Start Date Coverage End Date [facility] Claims Department [address] [place] [address] [id number] Richard Andrea Self - patient is the insured 1 MEDICAID [address] [place] [address] [id number] Richard Andrea Self - patient is the insured 1 1 [facility] [place] 2[facility] [address] [place] [address] [id number] 4 Richard Andrea Self - patient is the insured [address] [address] [id number] Richard Andrea Self - patient is the insured 1 Medications Administered Medication Instructions Date of Administration Dosage Notes Vivitrol 01/20/2021 380 mg Pt tolerated w ell. Pt voiced no questions or concerns. Sample Given. Vivitrol 02/18/2021 380 mg Toby Maker Abdulkadir cano. Pt tolerated well. Voiced no questions or concerns at present time. Vivitrol 03/17/2021 380 mg Patient tolera greg injection well. Patient voiced no complaints and had no questions or concerns today. Medical (General) History Surgical History Surgery Date(Month/Year) left lung collapsed 2009 Hospitalization History Reason Date(Month/Year)
--- OUTSIDE RECORDS SUMMARY | 2025-02-27 17:26 | XMS_ITS | Clinical Summary ---
Author Organization [facility] Address [address] [place] [address] Phone Care Team Providers Care Hand Twister Name Role Phone Giovani Mary MD Primary Care Provider Allergies Active Allergy Reactions Criticality Noted Date Comments Gabapentin Other (see Comments) 05/27/2021 seizures Sulfamethoxazole-Trimethoprim Hives Medium 2016 Medications Multiple Vitamins-Minera ls (MULTIVITAMIN PO) Take by mouth. Activ e methylPREDNISol one (MEDROL DOSPACK) 4 MG Tablet Therapy Pack See product package insert for dosing schedule 21 Tab 9 Active Additional Information Patient not taking.Reported on 05/16/2020 amLODIPine Besy-Benazepril HCl 10-20 MG Capsule Take 1 Capsule by mouth daily. Active tiZANidine HCl 4 MG Capsule Take 4 mg by mouth 4 times daily. Active acetaminophen-c odeine (TYLENOL/CODEIN E #3) 300-30 MG Tablet Take 2 Tablets by mouth 2 times daily as needed. Active Active Problems No known active problems Family History Medical History Relation Name Comments Hypertension Father Prostate Cancer Father Skin Cancer Mother Relation Name Status Comments Father Alive Mother Alive Social History Tobacco Use Types Packs/Day Years Used Date Smoking Tobacco: Never Cigarettes 2 12 Smokeless Tobacco: Never Tobacco Cessation:Ready to Q uit: No; Counseling Given: No Alcohol Use Standard Drinks/Week Comments No 0 (1 standard drink = 0.6 oz pur e alcohol) Sex and Gender Information Value Date Recorded Sex Assigned at Not on file Legal Sex Male 7:44 PM CDT Gender Identity Not on file Sexual Orientation Not on file 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 Not on file Not on file Not on file Last Filed Vital Signs Vital Sign Reading Time Taken Comments Blood Pressure 166/111 05/27/2021 10:30 PM CDT Pulse 100 05/27/2021 10:30 PM CDT Temperature 36.6 C (97.8 F) 05/27/2021 9:07 PM CDT Respiratory Rate 25 05/27/2021 10:30 PM CDT Oxygen Saturation 96% 05/27/2021 10:30 PM CDT Inhaled Oxygen Concentration - - Weight 86.2 kg (190 lb) 05/27/2021 9:07 PM CDT Height 182.9 cm (6') 05/27/2021 9:07 PM CDT Body Mass Index 25.77 05/27/2021 9:07 PM CDT Plan of Treatment Health Maintenance Due Date Last Done Comments Hepatitis C Virus (HCV) Screening 1977 TdaP Immunization 1977 Hepatitis B Immunization (1 of 3 - 19+ 3-dose series) 1996 Colonoscopy 2022 Colorectal Cancer Screening 2022 SARS-COV-2 Immunization ( - season) 2024 Influenza Immunization (Seas on Ended) 2025 07/23/2015 Respiratory Syncytial Virus (RSV) Immunization (Adult) (1 - 1-dose 75+ series) 2052 Pneumococcal Immunization Combined Aged Out 2014 No longer eligible based on patient's age to complete this topic Human Papillomavirus (HPV) Immunization Aged Out No longer eligible b ased on patient's age to complete this topic Meningococcal Immunization (ACWY) Aged Out No longer eligible based on patient's age to complete this topic Rotavirus Immunization Aged Out No lo nger eligible based on patient's age to complete this topic Insurance [place] [id number] Care Teams Hand Twister Relationship Specialty Start Date End Date Giovani Mary MD [address] [facility] [address] [place] [address] PCP - General Internal Medicine 03/11/21
--- OUTSIDE RECORDS SUMMARY | 2025-02-27 17:28 | XMS_ITS | Continuity of Care Document ---
Author Organization [facility] Address [address] [facility] [address] [place] [address] Insurance Providers Payer Plan Claims Address Claims Phone Policy Number Group Number Relation Employer Guarantor Name Guarantor Guarantor Address Guarantor Phone MEDIC AID [place] [address], [place] [id number] tel:[phone] [id number] Self Richard Andrea [address], [place] [address] [facility] [address] [address], [place] [address] tel:[phone] Self Richard Andrea [address], [place] [address] [employer] [place] [address], [place] [address] tel:[phone] Self Richard Andrea 1975 [address], [place] [address] Problems Unknown Problems Results Test Value / Unit Interpretation Reference Ran ge Lab Report Richard Andrea.pdf Allergies, adverse reactions, alerts No known allergies and adverse reactions Medications No administered medications reported Vital Signs No vital signs reported Social History No smoking Hx information available
[2025-02-27 17:29] VITALS: BP 170/117; PULSE 83; RESP 16; TEMP 36.6; O2SAT 100
[2025-02-27 17:33] VITALS: BP 169/111
--- NOTE | 2025-02-27 18:02 | ED.SKABFB ---
HPI - Skin/Abscess/Foreign Bdy General Chief complaint: Skin/Abscess/Foreign Body Stated complaint: mouth lesions Time Seen by Provider: 02/27/25 17:45 Source: patient Mode of arrival: ambulatory Limitations: no limitations History of Present Illness HPI narrative: Richard is a 49-year-old male patient presenting to the clinic today with complaints of mouth sores. He has sores to his oral mucosa as well as to his tongue. States that these sores, and go. Has been dealing with this for several years and seen multiple doctors. States he has had biopsies of the area is and they have come back to be noncancerous. States that they have given the diagnosis of lichen planus. Has tried the Magic mouthwash in the past and is very expensive in does not help well. States he normally gets a steroid and that resolved his symptoms Related Data Home Medications ?Medication ?Instructions ?Recorded ?Confirmed ?Last Taken ?Type saw palmetto 160 mg capsule 160 mg PO DAILY 05/19/24 08/20/24 Unknown History vitamin B complex 1 tablet PO DAILY 05/19/24 08/20/24 Unknown History Allergies Allergy/AdvReac Type Severity Reaction Status Date / Time sulfamethoxazole Allergy Intermediate hives Verified 02/27/25 17:33 trimethoprim Allergy Intermediate hives Verified 02/27/25 17:33 Review of Systems Review of Systems: Pertinent positives per HPI. Patient denies any fever, chills, rash, headache, visual changes, dizziness, cough, runny nose, sore throat, shortness of breath, chest pain, palpitations, nausea, vomiting, diarrhea, constipation, abdominal pain, or any urinary issues. PMFSH Past Medical History Medical History Ejection fraction < 50% Elevated serum cholesterol Collapse of left lung Hypertension Surgical History Surgical History History of removal of cyst History of tonsillectomy Left tonsil only History of chest tube placement Family History Family History Father Alive and well Mother Skin cancer (melanoma) Social History Social History Smoking status: Former smoker Tobacco type: cigarettes Second hand tobacco smoke exposure: No Additional smoking assessment comments: quit 3 years ago Alcohol intake: former Alcohol use details: Stop drinking 2 years ago Substance use: former Substance use type: opiates Other substance usage details: on suboxone reports not on this any longer 08/17 Living arrangements: with family Occupation/Education: occupation Gender identity (if verbalized by the patient): Male Sexual Orientation (if Verbalized by the Patient): Straight or Heterosexual Comments At the time of my signature, I reviewed and agree with the nursing past medical, surgical, social, and family history. There is no relevant family history pertinent to the patient complaint. Exam Narrative: General: Well-developed, well nourished, in no apparent distress Head: Normocephalic, atraumatic Eyes: Pupils equally round and reactive to light bilaterally, EOM intact, sclera and conjunctive clear, no discharge, lids normal Ears: TMs intact and clear, ear canals clear, no drainage, grossly hearing normal. Nose: Nares patent, no discharge, no inflammation, no sinus tenderness. Mouth: Oropharynx with open ulcerated sores to the tip of the tongue and oral mucosa, good dentition, MMM. Neck: Supple, trachea midline, no enlargement of anterior or posterior cervical nodes, no thyroid masses or goiter palpable. Cardio: Regular rate and rhythm, s1 and s2 normal, no murmur appreciated. Resp: Clear to auscultation bilaterally anteriorly and posteriorly, no rhonchi, rales, wheezing or rubs Course Course Emergency Course: Portions of this record may have been created with voice recognition software. Level of Care: Express Care Visit Vital Signs Vital signs: Vital Signs Temperature 36.6 C 02/27/25 17:29 Pulse Rate 83 02/27/25 17:29 Respiratory Rate 16 02/27/25 17:29 Blood Pressure 170/117 H 02/27/25 17:29 Pulse Oximetry 100 02/27/25 17:29 Oxygen Delivery Room Air 02/27/25 17:29 Temperature 36.6 C 02/27/25 17:29 Pulse Rate 83 02/27/25 17:29 Respiratory Rate 16 02/27/25 17:29 Blood Pressure 169/111 H 02/27/25 17:33 Pulse Oximetry 100 02/27/25 17:29 Oxygen Delivery Room Air 02/27/25 17:29 Vital signs reviewed MDM - Skin/Abscess/Foreign Bdy MDM Narrative Medical decision making narrative: At the time of visit patient is resting comfortably on the exam table. Patient appears to be nontoxic. Plan: Patient has outbreak of lichen planus. Prescription for prednisone was sent to the pharmacy. Supportive measures were discussed with the patient and they voiced understanding discharge instructions and agrees to treatment plan. Return precautions reviewed Differential Diagnosis Differential diagnosis: Likely abscess of skin or subcutaneous tissue and other (Gingivostomatitis, canker sore, fever blister) Discharge Plan Discharge Clinical Impression: Lichen planus Patient Disposition: Home Condition: Stable Instructions: Antibiotic Form, Gingivostomatitis (ED) Additional Instructions: Take prednisone as prescribed Avoid salty, spicy, or acidic foods Eat a bland diet during this outbreak Follow-up with your primary care doctor in 3-5 days Patient Language: Lao Prescriptions: New prednisone 50 mg tablet 50 mg PO DAILY 5 Days Qty: 5 0RF No Action vitamin B complex [B Complex-Vitamin B12] Tablet 1 tablet PO DAILY saw palmetto 160 mg Capsule 160 mg PO DAILY Follow-up/Referrals: Lyric,Moe Govea MD [Primary Care Provider] - Time of Disposition: 17:48 Quality NIHSS Nursing Documentation ED NIHSS nursing documentation: reviewed/agree
== END 2025-02-27 17:53 | disposition home or self-care (01) ==
PROVIDERS: Emergency Provider Nurse Practitioner Family; PCP Family Medicine
DX: L43.9 Lichen planus, unspecified (principal); Z87.891 Personal history of nicotine dependence; I10 Essential (primary) hypertension
CPT/HCPCS: 99213; G0463

== ENCOUNTER 2025-04-06 16:00 | Emergency (ER) | payer OTHER, SELFPAY ==
--- OUTSIDE RECORDS SUMMARY | 2025-04-06 16:03 | XMS_ITS | Encounter Summary ---
Author Organization [facility] Address [address] [place] [address] Phone Care Team Providers Care Malt House Operator Name Role Phone Moe Ji MD Primary Care Provider [phone] Reason for Referral * PT/OT/ST (Routine) - Open Specialty Diagnoses / Procedures Referred By Contbinu t Referred To Contact Physical Therapy Diagnoses Cervicalgia Zahraa De La Cruz APRN, ART PREPARATOR [address] [place] [address] Phone: tel: fax: [facility] at [address] [address] Phone: tel: fax: Referral ID Status Reason Start Date Expiration Date Visits Re quested Visits Authorized [id number] Open 03/31/2025 100 100 Scheduling Instructions Encounter Details Date Type Department Care Team (Latest Contact Info) Description 03/31/2025 Transcribe Orders [facility] [address] [place] [address] Zahraa De La Cruz APRN, ART PREPARATOR [address] [place] [address] Cervicalgia (Primary Dx) Social History Tobacco Use Types Packs/Day Years Used Date Smoking Tobacco: Never Cigarettes 2 12 Smokeless Tobacco: Never Alcohol Use Standard Drinks/Week Comments No 0 (1 standard drink = 0.6 oz pur e alcohol) Sex and Gender Information Value Date Recorded Sex Assigned at Not on file Legal Sex Male 7:44 PM CDT Gender Identity Not on file Sexual Orientation Not on file 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 Not on file Not on file documented as of this encounter Plan of Treatment Upcoming Encounters Date Type Department Care Team (Latest Contact Info) Description 04/29/2025 4:45 PM CDT Physical Therapy [facility] [address] [facility], [address] [place] [id number] Zahraa De La Cruz, PRESSURE DISPATCHER, ART PREPARATOR [address] [place] [address] Fidelia Wallace, PT [place] Discharge Disposition: Discharged to home or Selfcare Scheduled Referrals Name Type Priority Associated Diagnoses Orde r Schedule PHYSICAL THERAPY REFERRAL Outpatient Referral Routine Cervicalgia Expected: 03/31/2025, Expires: 03/31/2026 documented as of this encounter Visit Diagnoses Diagnosis Cervicalgia- Primary documented in this encounter Additional Health Concerns Assessment Noted Time PHQ-9 Depression Total Score: 0 09/12/20 17 2:00 PM FAMILY MEMBER CARETAKER documented as of this encounter Care Teams Malt House Operator Relationship Specialty Start Date End Date Moe Ji MD [address] [place] [address] [facility] [address] [place] [address] PCP - General Family Medicine 03/10/25 documented as of this encounter
--- OUTSIDE RECORDS SUMMARY | 2025-04-06 16:03 | XMS_ITS | Patient Health Record ---
Author Organization [facility] Address [address] [place] [address] Care Team Providers Care Hospice Music Therapist Name Role Phone Giovani Mary Primary Care [...] mg TAKE 1 TABLET B Y MOUTH DAILY; Duration: 30 Active Triamcinolone Acetonide 0.1 % APPLY TO AFFECTED AREA(S) A THIN LAYER TO SEBORRHEA AT BEDTIME NEEDED; Duration: 5 Active Zubsolv 5.7-1.4 MG 1 tablet under the tongue and allow to dissolve Sublingual twice a day 12/22/2021 Active OLANZapine 5 mg TAKE 1 TABLET BY [facility] AT BEDTIME; Duration: 30 Active Tadalafil 5 MG 1 tablet as needed 1 -2 HOURS PRIOR TO SEXUAL ACTIVITY Orally EVERY OTHER DAY 10/20/2021 Active Nicotine 21 MG/24HR APPLY 1 PATCH TO SKI N DAILY; Duration: 28 Active Social History Tobacco Use: Social [...] W/U Status Risk Notes Problem Tobacco user (858000466) Nicotine dependence, unspecified, uncomplicated (F17.200) Active confirmed Problem Depressed bipolar I disorder in remission (62279263) Bipolar disorder, in partial remission, most recent episode depressed (F31.75) 1 Active confirmed Problem Chronic pain (90690225) Other chronic pain (G89.29) Active confirmed Problem Low back pain (525759061) Low back pain (M54.5) Active confirmed Problem Chronic fatigue syndrome (75792228) Chronic fatigue (R53.82) Active confirmed Problem Sleep apnea (81784810) Sleep apnea, unspecified type (G47.30) Active confirmed Problem Sciatica (52928742) Left sided sciatica (M54.32) Active confirmed Problem Opioid dependence (93549462) Opioid use disorder, severe (F11.20) Active confirmed Problem Sexual dysfunction (23415547) Sexual dysfunction (R37) 1 Active confirmed Problem Tobacco use (308517112) Tobacco use disorder (F17.200) Active confirmed Problem Essential hypertension (42554858) Hypertension, unspecified type (I10) Active confirmed Problem Obesity (822663062) Obesity, unspecified classification, unspecified obesity type, unspecified whether serious comorbidity present (E66.9) Active confirmed Problem Opioid use disorder (1024564379) Opioid use disorder (F11.99) Active confirmed Problem Cannabis dependence (24781419) Cannabis use disorder, moderate, dependence (F12.20) Active confirmed Problem Seborrhea (8982070229) Seborrhea (L21.9) Active confirmed Plan Of Treatment [...] Insured Coverage Start Date Coverage End Date [facility] Attn Claims Department [address] [place] [address] [phone] [id number] Richard Andrea Self - patient is the insured 1 MEDICAID [address] [place] [address] [id number] Richard Andrea Self - patient is the insured 1 1 [facility] [address] [place] [address] [id number] Richard Andrea Self - patient is the insured 1 1 [facility] [address] [facility] [address] [place] [address] [id number] Richard Andrea Self - patient is the insured 1 Medications Administered Medication Instructions Date of Administration Dosage Notes Vivitrol 01/20/2021 380 mg Pt tolerated w ell. Pt voiced no questions or concerns. Sample Given. Vivitrol 02/18/2021 380 mg Survey Engineer Abdulkadir cano. Pt tolerated well. Voiced no questions or concerns at present time. Vivitrol 03/17/2021 380 mg Patient tolera greg injection well. Patient voiced no complaints and had no questions or concerns today. Medical (General) History Surgical History Surgery Date(Month/Year) left lung collapsed 2009 Hospitalization History Reason Date(Month/Year)
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
[2025-04-06 16:05] VITALS: BP 176/97; PULSE 94; RESP 20; TEMP 36.4; O2SAT 100
--- NOTE | 2025-04-06 16:25 | ED.DENTAL ---
HPI - Dental/Oral General Chief complaint: Dental/Oral Stated complaint: mouth ulcers Time Seen by Provider: 04/06/25 16:10 Source: patient and RN notes reviewed Mode of arrival: ambulatory Limitations: no limitations History of Present Illness HPI Narrative: 49-year-old male presents Express [facility] complaining of lesions in his mouth approximally 1 week. Patient reports a lesion on the tip of his tongue and behind his lips side is mouth. Patient has a history of Lichen planus. Patient is switching doctors supposed to see them in April. Patient is not on any current therapies for his condition. Patient was recently approximately 6 weeks ago was treated with steroids said it resolved it for a little bit. Patient denies any fevers, body aches, chills, upper respiratory symptoms, cough, breathing problems, difficulty clearing secretions, or any other symptoms. Related Data Allergies Allergy/AdvReac Type Severity Reaction Status Date / Time sulfamethoxazole Allergy Intermediate hives Verified 04/06/25 16:11 trimethoprim Allergy Intermediate hives Verified 04/06/25 16:11 Review of Systems Review of Systems: CONSTITUTIONAL: Denies fever, chills, or sweats. EYES: Denies visual changes, redness, or discharge. ENT: Denies rhinorrhea, congestion, sore throat, or otalgia. MOUTH: Positive for oral lesions. CARDIOVASCULAR: Denies chest pain, palpitations, or edema. RESPIRATORY: Denies cough or dyspnea. GASTROINTESTINAL: Denies abdominal pain, nausea, vomiting, or diarrhea. GENITOURINARY: Denies dysuria or hematuria. SKIN: Denies rash or itching. MUSCULOSKELETAL: Denies back pain, joint pain, or myalgia. NEUROLOGIC: Denies headache, numbness, or weakness. PSYCHIATRIC: Denies anxiety or depression. All other systems reviewed are negative, except as documented in HPI. [facility] Past Medical History Medical History Ejection fraction < 50% Elevated serum cholesterol Collapse of left lung Hypertension Surgical History Surgical History History of removal of cyst History of tonsillectomy Left tonsil only History of chest tube placement Family History Family History Father Alive and well Mother Skin cancer (melanoma) Social History Social History Smoking status: Former smoker Tobacco type: cigarettes Second hand tobacco smoke exposure: No Additional smoking assessment comments: quit 3 years ago Alcohol intake: former Alcohol use details: Stop drinking 2 years ago Substance use: former Substance use type: opiates Other substance usage details: on suboxone reports not on this any longer 08/17 Living arrangements: with family Occupation/Education: occupation Gender identity (if verbalized by the patient): Male Sexual Orientation (if Verbalized by the Patient): Straight or Heterosexual Comments At the time of my signature, I reviewed and agree with the nursing past medical, surgical, social, and family history. There is no relevant family history pertinent to the patient complaint. Exam Narrative: GENERAL: This is a well-nourished, well-developed adult, in no apparent distress. They are non ill-appearing, nontoxic appearing. HEAD: normocephalic, atraumatic. EYES: Sclera clear/white. Conjunctiva normal. Vision is grossly intact. Extraocular movements intact EARS: External ears normal, auditory canals with excessive cerumen. TMs normal without perforation. Hearing grossly intact. NOSE: External nose normal with no obvious nasal discharge, nasal turbinates without redness, no rhinorrhea. THROAT: Mucous membranes moist, posterior pharynx clear, without erythema or swelling. Uvula midline. OROPHARYNX: Ulceration present to tip of tongue full white lacy appearance. White lacy plaque behind the patient's lower lip inside oropharynx. No other suspicious lesions or sores. No gingivitis, no missing teeth, no dental caries. NECK: Neck supple, non-tender without lymphadenopathy, masses or thyromegaly. CARDIOVASCULAR: Regular rate and rhythm RESPIRATORY: Respiratory rate normal, respiratory effort nonlabored, no respiratory distress SKIN: warm, Dry, intact with no suspicious lesions or rash, good texture and turgor. NEURO: awake, alert, and oriented to person, place and time. There were no obvious focal neurologic abnormalities. EXTREMITIES: No joint tenderness, effusion, or edema noted. Course Course Emergency Course: Portions of this record may have been created with voice recognition software Level of Care: Express Care Visit Vital Signs Vital signs: Vital Signs Temperature 97.6 F 04/06/25 16:05 Pulse Rate 94 04/06/25 16:05 Respiratory Rate 20 04/06/25 16:05 Blood Pressure 176/97 H 04/06/25 16:05 Pulse Oximetry 100 04/06/25 16:05 Oxygen Delivery Room Air 04/06/25 16:05 Temperature 97.6 F 04/06/25 16:05 Pulse Rate 94 04/06/25 16:05 Respiratory Rate 20 04/06/25 16:05 Blood Pressure 176/97 H 04/06/25 16:05 Pulse Oximetry 100 04/06/25 16:05 Oxygen Delivery Room Air 04/06/25 16:05 Reviewed MDM - Dental/Oral MDM Narrative Medical decision making narrative: Symptoms consistent with Lichen planus exacerbation. Will treat with steroid taper. Advised patient discussed with PCP for further prescription and management of his condition for long-term treatment. Discussed physical exam findings. Advised supportive measures and signs/symptoms to go to the ER. Pt is appropriate for outpt treatment and f/u. Differential Diagnosis Differential diagnosis: Likely other (lichen planus, herpes simplex, canker sore) Critical Care Time Critical Care Time Critical Care Time: No Discharge Plan Discharge Clinical Impression: Oral mucosal lesion Patient Disposition: Home Condition: Stable Instructions: Antibiotic Form Additional Instructions: Take steroid as directed. Follow-up with your PCP for further evaluation and management of your lichen planus. You may take Tylenol or ibuprofen as needed for pain. Go to the ER if you develop worsening symptoms, difficulty breathing, difficulty clearing secretions, fevers, or any other concerns. Patient Language: Arabic Prescriptions: New prednisone 10 mg tablet See Taper PO DAILY Qty: 45 0RF Taper: Prednisone Taper from 50 mg;15 days 50 mg DAILY for 3 Days and 0 Hour 40 mg DAILY for 3 Days and 0 Hour 30 mg DAILY for 3 Days and 0 Hour 20 mg DAILY for 3 Days and 0 Hour 10 mg DAILY for 3 Days and 0 Hour Follow-up/Referrals: Garrison,Moe Govea MD [Primary Care Provider] - Time of Disposition: 16:21
== END 2025-04-06 16:27 | disposition home or self-care (01) ==
PROVIDERS: PCP Family Medicine
DX: K13.70 Unspecified lesions of oral mucosa (principal); Z87.891 Personal history of nicotine dependence; I10 Essential (primary) hypertension
CPT/HCPCS: 99213; G0463